=== PATIENT | female | born 1975 | race Caucasian/White ===

== ENCOUNTER 2019-12-31 14:08 | Outpatient (CLI) | payer OTHER | END 2019-12-31 14:20 | disposition home or self-care (01) | LOC: SONOGRAMA 14:08 | DX: N64.59 Other signs and symptoms in breast (principal); D24.1 Benign neoplasm of right breast; D24.2 Benign neoplasm of left breast; R92.8 Other abnormal and inconclusive findings on diagnostic imaging of breast ==

== ENCOUNTER → 2024-03-06 | Outpatient (CLI) | payer OTHER | END | disposition home or self-care (01) | LOC: SONOGRAMA 14:57 | DX: M79.671 Pain in right foot (principal) ==